=== PATIENT | female | born 1970 | race Caucasian/White ===

== ENCOUNTER 2023-03-06 00:19 | Outpatient (CLI) | payer BC, SELFPAY ==
--- NOTE | 2023-03-06 08:00 | DI.RAD_ITS ---
Exam(s) RF BARIUM SWALLOW EXAM: RF BARIUM SWALLOW CLINICAL HISTORY: intermittent food impactions, solid,PARYNGOESOPHAGEAL DYSPHAGIA,R13.14 TECHNIQUE: 2D and realtime digital imaging was performed. CONTRAST MATERIAL: Thick and thin barium and barium tablet were administered. COMPARISON: CT CT SOFT TISSUE NECK W/CONTRAST, CT SINUS W/CONTRAST from 08/20/2022 US US SOFT TISSUE HEAD/NECK from 01/19/2023 FINDINGS: The PA and lateral chest films show normal heart size and clear lung saavedra. The lateral hair rooting machine operator view of the neck is unremarkable Esophagus: The patient swallowed barium without difficulty. Noevidence for mucosal erosions. Nofold thickening. No mass is visible. Minimal narrowing at the GE junction. Motility: There is a normal primary stripping wave. Mild tertiary contractions were noted in the lowe r 3rd of the esophagus. There is a tiny sliding hiatal hernia. The barium tablet passed through the GE junction without jennifer y. Nogastroesophageal reflux was observed during the exam. IMPRESSION: Tiny sliding hiatal hernia. Minimal narrowing at the GE junction. RADIATION DOSE DELIVERED: lizbeth Hughes=11.8 mGy
[2023-03-06] MEDS: Barium Sulfate 98% W/W 140 ML BTL PO (11:44)
[2023-03-06] MEDS: Barium Sulfate 700 MG TAB PO (11:45)
[2023-03-06] MEDS: Barium Sulfate 60% W/V 355 ML BTL PO (11:45)
[2023-03-06] MEDS: Simethicone/Sod Bicarb/Cit Ac, 4 gram PACKET 1 PACKET PO (11:45)
== END 2023-03-06 00:39 ==
LOC: DI 00:19
PROVIDERS: PCP Family Medicine; Visit Provider Otolaryngology
DX: K46.9 Unspecified abdominal hernia without obstruction or gangrene (principal); R13.14 Dysphagia, pharyngoesophageal phase; T18.118A Gastric contents in esophagus causing other injury, initial encounter
CPT/HCPCS: 74221; J3490

== ENCOUNTER 2023-04-01 07:14 | Day surgery (SDC) | payer BC, SELFPAY ==
--- NOTE | 2023-04-01 07:03 | PGE_ITS ---
Date of Service Date of service: 04/01/23 Time of Service: 08:53 Assessment and Plan Assessment and plan (1) Globus sensation: Status: Acute Assessment and plan: Ms. Montaño is a pleasant 52-year-old female with a months of dysphagia and globus sensation.? She has been worked up by Dr. Cartwright and he has not been able to find a clear source of this.? Her barium swallow does note a small sliding hiatal hernia as well as minimal narrowing at the GE junction.? I discussed the pathophysiology of reflux with the patient.? Although she does not have the other classic signs of heartburn or reflux certainly her dysphagia could be due to reflux.? I have recommended an EGD to her.? I explained the procedure and what I would be looking for.? I used a pamphlet with pictures to explain the procedure.? Risks, benefits and complications have been reviewed. Complications include but are not limited to bleeding, pain, perforation, sore throat, aspiration, and adverse reaction to the medications.? Questions were entertained and answered to their satisfaction and they wished to proceed. No guarantees were given or implied.? Patient and her seem to have a good understandi ng of the procedure and the risks and benefits and complications and wished to proceed.? I also reviewed balloon dilatation with the patient and her .? We reviewed the risks of a balloon dilation which would be rupture of the esophagus and that she would need immediate transfer to a tertiary center for repair.? I also explained that if she does need a dilation she may need more than one to be done about a month to 2 months apart. (2) Pharyngoesophageal dysphagia: Status: Acute Subjective Subjective Interval history since last seen: Bailey is here today for an upper endoscopy. Reviewed the procedure in detail as well as the risks, benefits and complications. She has not had any new symptoms develop since I saw her in the office. She has a good understanding of the complication potential and wishes to proceed. Exam Const General: comfortable and no acute distress Orientation: alert and oriented x3 HENMT Head: normocephalic and atraumatic Resp Effort & Inspection: normal respiratory effort Time Spent with Patient Time Spent with Patient: <25 minutes Time was spent: counseling the patient
--- NOTE | 2023-04-01 07:06 | W.PM.DSUDISC ---
Date of service: 04/01/23 Time of Service: 09:52 Discharge Plan Disposition Patient Disposition: Home Condition: Stable Discharge Details Reason For Visit: egd Attending Provider: Trudy Coyne Primary Care Provider: SHELLY JAMES Home Meds and New Rx's Prescriptions: New famotidine [Pepcid] 40 mg tablet 40 mg PO QHS Qty: 30 0RF Continued Mucinex 1,200 mg tablet extended release 12hr 1,200 mg PO ONCE multivitamin with iron-mineral [Century] 1 tab PO DAILY albuterol sulfate [Proventil HFA] 90 mcg/actuation HFA aerosol inhaler 2 puff inhalation Q6H PRN levothyroxine 50 mcg tablet 50 mcg PO DAILY Discharge Instructions Instructions: Diet for Stomach Ulcers and Gastritis (ED), GERD (Gastroesophageal Reflux Disease) (DC), Hiatal Hernia (DC) Additional Instructions: Findings: mild inflammation of the stomach and esophagus. Small HIatal hernia Follow up: 2 weeks New Medication: Pepcid 40 mg, take 1 tab at night Diet: low acid Please call if you develop: fevers >101.5 Nausea or Vomiting Abdominal pain that is not transient Rectal bleeding that is more then a tbsp A hard abdomen and inability to pass gas DAY SURGERY UNIT POST ENDOSCOPY INSTRUCTIONS Instructions for everyone who is given Anesthesia: For your safety, please do the following for the next 24 Hours: a. Do not drive or operate dangerous equipment b. Do not drink alcohol beverages or use any recreational drugs for the first 24 hours or while taking pain medications. The medications in your body may have a reaction that can be dangerous. c. Do not make any important decisions or sign any important papers 1. Generally there are no restrictions on your activity after a day or so has gone by, but you may feel a bit fatigued for a few days. 2. After you arrive home you may have a light meal and return to a normal diet as you can tolerate it without feeling sick to your stomach. 3. After surgery, you may feel pain or discomfort. This should be only transient, but if it persists please contact your doctor. 4. If there are any questions regarding the findings of your procedure, please feel free to contact your doctor. 6. If you are unable to contact your doctor with a problem, contact the hospital at [phone]. 7. Continue all your regular medications unless directed otherwise. I understand the above instructions and have no questions. Signature of Patient or Responsible Adult Escort Date/Time Name of Responsible Adult Escort Signature of Nurse Date/Time Activity:: Activity as Tolerated Diet:: low acid Discharge Orders Discharge Orders: Discharge Order (Routine); Ordered 04/01/23 Ordered By: Trudy Coyne DS: Diagnosis Discharge Diagnosis (1) Globus sensation: Status: Acute Asessment and Plan: Patient is seen and examined after their endoscopy. Patient has minimal sore throat. They have been able to tolerate liquids. They do not have any Nausea or Vomiting. The patient work up coughing and albuterol. She has a history of mild asthma. She was given a duoneb treatment and felt better afterwards. They have been able to pass gas and are not having any abdominal pain or distention. they have not vomited any blood. The vital signs have been stable-see nursing notes. We discussed findings on their endoscopy We reviewed the importance of lifestyle modifications- see diet recommendations We reviewed any new medications that the patient may be prescribed- see medicine reconciliation. Patient will either be sent a letter with the biopsy results or follow up in the office- see discharge instructions Patient was given explicit instructions for emergency follow up post endoscopy- see discharge instructions Patient verbalized understanding and was discharged in stable and satisfactory condition. See nursing notes. (2) Pharyngoesophageal dysphagia: Status: Acute
--- NOTE | 2023-04-01 07:08 | W.PM.ENDDOP ---
Date of service: 04/01/23 Time of Service: 09:34 Endoscopy Report DATE OF PROCEDURE: 04/01/23 PRE-OP DIAGNOSIS: dysphagia and globus sensation POST-OP DIAGNOSIS: other (mild esophagitis and small HIatal hernia) PROCEDURE: EGD with biopsies SURGEON: Trudy Coyne ANESTHESIA TYPE: General:No Airway ESTIMATED BLOOD LOSS: 2 PATHOLOGY: other (Bx of antrum and GE junction) COMPLICATIONS: None DISPOSITION: same day INDICATIONS: Ms. Montaño is a pleasant 52-year-old female with a months of dysphagia and globus sensation.? She has been worked up by Dr. Cartwright and he has not been able to find a clear source of this.? Her barium swallow does note a small sliding hiatal hernia as well as minimal narrowing at the GE junction.? I discussed the pathophysiology of reflux with the patient.? Although she does not have the other classic signs of heartburn or reflux certainly her dysphagia could be due to reflux.? I have recommended an EGD to her.? I explained the procedure and what I would be looking for.? I used a pamphlet with pictures to explain the procedure.? Risks, benefits and complications have been reviewed. Complications include but are not limited to bleeding, pain, perforation, sore throat, aspiration, and adverse reaction to the medications.? Questions were entertained and answered to their satisfaction and they wished to proceed. No guarantees were given or implied.? Patient and her seem to have a good understanding of the procedure and the risks and benefits and complications and wished to proceed.? I also reviewed balloon dilatation with the patient and her .? We reviewed the risks of a balloon dilation which would be rupture of the esophagus and that she would need immediate transfer to a tertiary center for repair.? I also explained that if she does need a dilation she may need more than one to be done about a month to 2 months apart. FINDINGS: mild inflammation of the GE junction with a small hiatal hernia PROCEDURE DESCRIPTION: After informed consent was obtained the patient was take to the procedure room and placed in a supine position. Monitors were applied and a time out was done. The patients name, date of , procedure type, allergies to medications and metal in their body was reviewed. A bite block was placed and the patient was sedated. Once sedated and comfortable the gastroscope was advanced through the oropharynx which was grossly normal into the esophagus. The proximal and mid-esophagus were normal. In the distal esophagus there was mild inflammation noted. there was a small schatzki's ring. The scope was advanced into the stomach and through the pylorus into the 3rd portion of the duodenum. The duodenum was noted to be normal. The scope was retracted back into the stomach and biopsies were done to rule out H. pylori. There were no ulcers. There was mild inflammation. The scope was retroflexed. The cardia and fundus were noted to be normal. There was a small 2 cm sliding hiatal hernia noted. The scope was retracted back into the esophagus and biopsies were done of the GE junction to rule out Coronado's. The Z line was regular. The GE junction was at 35 cm. The scope was removed and the patient was woken up and taken back to [facility] in stable condition. Follow up: 2 weeks. Start on Pepcid 40 mg daily
[2023-04-01 07:55] VITALS: BP 143/85; PULSE 66; RESP 16; TEMP 36.6; O2SAT 96
[2023-04-01] MEDS: Lactated Ringers 1,000 ML 80 ML IV (08:17)
--- NOTE | 2023-04-01 08:45 | ANES.PREOP_ITS ---
General Info Date of Service Date Performed: 04/01/23 Height: 5 ft 5.5 in Weight: 102.1 kg Body Mass Index (BMI): 36.8 Surgical Procedure: Operation Date: 04/01/23 09:05 Proposed Procedure Side Surgeon p Gastroscopy Trudy Coyne MD Meds Allergies and Home Medications Allergies Allergy/AdvReac Type Severity Reaction Status Date / Time orange Allergy Unknown Verified 03/31/23 12:43 Home Medication Medication Instructions Recorded albuterol sulfate 90 mcg/actuation 2 puff inhalation Q6H PRN 01/21/23 aerosol inhaler (Proventil HFA) levothyroxine 50 mcg tablet 50 mcg PO DAILY 01/21/23 multivitamin with iron-mineral 1 tab PO DAILY 01/21/23 [Century] guaifenesin 1,200 mg tablet, 1,200 mg PO ONCE 03/30/23 extended release 12 hr (Mucinex) Current Visit Medications: Current Medications Generic Name Dose Route Start Last Admin Trade Name Freq PRN Reason Stop Dose Admin Ringer's Solution 1,000 mls @ 80 mls/hr 04/01/23 06:00 04/01/23 08:17 IV 04/30/23 23:59 80 mls/hr INFUSION PETE Administration IV Miscellaneous Supplies 1 each 04/01/23 06:00 Iv Access IV 04/30/23 23:59 DIRECTED PETE Ondansetron HCl 4 mg 04/01/23 07:10 Ondansetron 4 Mg/2 Ml Vial IVP 05/01/23 07:09 Q4H PRN PRN Nausea / Vomiting Sodium Chloride 0 ml 04/01/23 06:00 Normal Saline Flush 10 Ml Syr IV 04/30/23 23:59 PRN PRN Sodium Chloride 0 ml 04/01/23 06:00 Normal Saline 10 Ml Vial IJ 04/30/23 23:59 DIRECTED PRN Sterile Water 0 ml 04/01/23 06:00 Water,Injection,Sterile 10 Ml Vial IJ 04/30/23 23:59 DIRECTED PRN PFSH Active Problems Active Problems: Problem Status Onset Code Globus sensation R09.89 Sensorineural hearing loss (SNHL) of both ears H90.3 Multinodular thyroid E04.2 Sensation of fullness in right ear H93.8X1 Pharyngoesophageal dysphagia R13.14 Medical History Medical History Blood in urine History of benign neoplasm of skin Hyperlipidemia Hypothyroidism Iron deficiency Localized swelling of right lower leg Lymphoma, low grade Mild intermittent asthma Reactive airway disease Severe obesity Surgical History Surgical History History of colonoscopy 01/27/2022 History of esophagogastroduodenoscopy (EGD) 10/30/2018 History of foot surgery Tobacco Smoking/Tobacco Use Status: Never Alcohol Alcohol Intake: never Substance Use Substance use: Never Substance use type: does not use Vital Signs and Lab Results Vital Signs Most Recent Vital Signs in EMR: Most Recent Vital Signs Temp Pulse Resp BP Pulse Ox 36.6 C 66 16 143/85 H 96 04/01/23 07:55 04/01/23 07:55 04/01/23 07:55 04/01/23 07:55 04/01/23 07:55 Lab Results Blood Type / Crossmatch: No Data to Display Complete Blood Count: No Data to Display Complete Metabolic Panel: No Data to Display Liver Function Panel: No Data to Display Coagulation Panel: No Data to Display Cardiac Panel: No Data to Display Arterial Blood Gas: No Data to Display Venous Blood Gas: No Data to Display Pancreas Panel: No Data to Display Thyroid Panel: No Data to Display Infectious Disease: No Data to Display Blood Cultures: No Data to Display Toxicology Panel: No Data to Display Panel: 2 No Data to Display Anesthesia Assessment and Plan Anesthesia History Personal History: No History of Anesthesia Complications Family History: No Family History of Anesthesia Complications Exercise Tolerance Exercise Tolerance: Metabolic Equivalents>4 Pertinent Negatives Pertinent Negatives: No Symptoms of GERD Cardiac & Pulmonary Exam Cardiac Exam: Normal S1/S2 Heart Sounds Pulmonary Exam: Clear Bilateral Breath Sounds Implantable Cardiac Device Does patient have a Pacemaker or an ICD?: No Airway Exam Known Difficult Airway: No Mallampati Class: 2 Mouth Opening: Normal (> 3cm) Thyromental Distance: Greater than 3 cm Neck Range of Motion: Full ROM Neck Circumference: Normal Teeth Condition: Normal Dentition ASA Classification ASA Score: ASA 2 Emergency Case?: No NPO Status NPO Status: NPO Clears >2 hours, Solids >8 hours Status Status: Not Relevant due to Medical History Anesthesia Plan Resuscitation Status: Full Code Anesthesia Technique: General Anesthesia Airway Planned: Natural Airway Monitors Used: Standard Monitors
[2023-04-01 08:46] VITALS: BMI 36.8
--- NOTE | 2023-04-01 09:08 | STOM_PTH ---
PATIENT: Bailey Montaño LOC: [facility] U#:[id number] AGE/SX: 52/F ROOM: RE04/01/[address]: Trudy Coyne MD : 1970 BED: DIS: 04/01/2023 SPEC #: [id number] RECD: 04/01/23 10:59 STATUS: JOSE G ALEJANDRO #: [id number] LINDA: 04/01/23 09:[address]: Trudy Coyne DEPT: Surgical Specimen RECD BY: Helen Price ENTERED: 04/01/23 11:00 SP TYPE: STOMACH OTHR DR: SHELLY JAMES Tissues: 1 - STOMACH BIOPSY 2 - ESOPHAGUS BIOPSY Procedures: GROSS AND MICRO LEVEL 4 Comments:
[2023-04-01 09:17] VITALS: BP 125/88; PULSE 70; RESP 16; TEMP 36; O2SAT 94
[2023-04-01 09:39] VITALS: BP 138/82; PULSE 71; RESP 18; TEMP 36.9; O2SAT 99
[2023-04-01 09:40] VITALS: PULSE 76; RESP 1; RESP 12; RESP 8; O2SAT 99
[2023-04-01] MEDS: Albuterol/Ipratropium 3 ML UPD VIAL UPD (09:40)
--- NOTE | 2023-04-01 09:48 | W.ANESPOSTOP ---
Postoperative Evaluation Date, Time and Location Date Performed: 04/01/23 Time Performed: 09:48 Patient Location: Day Surgery Unit Vital Signs Most Recent Imported Vital Signs: Most Recent Vital Signs Temp Pulse Resp BP Pulse Ox 36.9 C 71 18 138/82 99 04/01/23 09:39 04/01/23 09:39 04/01/23 09:39 04/01/23 09:39 04/01/23 09:39 Pain Score Most Recent Pain Score: Most Recent Pain Score Pain Level 0 04/01/23 09:39 Assessment Mental Status: Awake (Alert & Oriented to Patient Baseline) Airway and Respiratory Function: Patent airway with normal (patient baseline) respiratory exam Cardiovascular Function: Hemodynamically Stable Hydration Status: Adequately Hydrated Nausea & Vomiting: No Nausea or Vomiting Pain: Pt. Denies Any Pain Peripheral Nerve Block: Patient did not receive a nerve block
[2023-04-01 09:51] VITALS: PULSE 65; RESP 1; RESP 16; O2SAT 100
== END 2023-04-01 07:15 | disposition home or self-care (01) ==
PROVIDERS: PCP Family Medicine; Visit Provider Surgery
PROC: 0DJ68ZZ Inspection of Stomach, Via Natural or Artificial Opening Endoscopic (ICD-10-PCS; CPT 43235; principal; 2023-04-01 09:00)
DX: R13.14 Dysphagia, pharyngoesophageal phase; K20.90 Esophagitis, unspecified without bleeding; K44.9 Diaphragmatic hernia without obstruction or gangrene; K22.2 Esophageal obstruction; K22.89 Other specified disease of esophagus
CPT/HCPCS: 43239; 88305; 94640; 94760; J7620